=== PATIENT | female | born 1960 | race Caucasian/White ===

== ENCOUNTER 2020-04-09 08:59 | Outpatient (REF) | payer OTHER, SELFPAY ==
--- NOTE | ~2020-04-09 | MM_ITS ---
EXAMINATION: MM SCREENING DIGITAL BREAST TOMOSYNTHESIS, BILATERAL CLINICAL INFORMATION: Screening. Asymptomatic. The lifetime risk of breast cancer based on the Tyrer-Cuzick Model is 7%. COMPARISON: Mammography: 04/05/2019, 02/14/2018, 01/20/2017 TECHNIQUE: Digital breast tomosynthesis is performed in both the craniocaudal and mediolateral oblique views along with computer-aided detection (CAD). Synthesized 2D images are generated from the tomosynthesis. FINDINGS: There are scattered areas of fibroglandular density (ACR BI-RADS breast composition Category b). There are no significant masses, abnormal calcifications, or other abnormalities. Parenchymal pattern is similar to prior exams. Again, there is biopsy clip marker posterior 6:30 o'clock right breast. MM/MM tomosynthesis screening BI IMPRESSION: No mammographic evidence of malignancy. ASSESSMENT: BI-RADS 1: Negative RECOMMENDATION: Routine annual mammography screening. This patient's information was entered into a reminder system with a target due date for their next mammogram.
== END 2020-04-09 09:00 | disposition home or self-care (01) ==
LOC: HO.MAMMO 08:59
PROVIDERS: PCP Nurse Practitioner Family; Visit Provider Nurse Practitioner Family
DX: Z12.31 Encounter for screening mammogram for malignant neoplasm of breast (principal)
CPT/HCPCS: 77063; 77067

== ENCOUNTER 2020-06-17 17:17 | Outpatient (REF) | payer OTHER, SELFPAY ==
[2020-06-17 18:08] LABS: MANUAL DIFF FLAG NO
[2020-06-17 18:27] LABS: Basophils Absolute Auto 0.1 X10*3/uL (0.0-0.2); Basophils Percent Auto 0.9 % (0-2); Eosinophils Absolute Auto 0.1 X10*3/uL (0.0-0.4); Eosinophils Percent Auto 1.7 % (0-4); Hematocrit 39.5 % (37-47); Hemoglobin 13.3 g/dl (12.0-16.0); Imm Gran Abs Auto 0.02 X10*3/uL (0.00-0.03); Imm Gran Pct Auto 0.3 % (0.0-0.4); Lymphocytes Absolute Auto 2.2 X10*3/uL (1.2-4.9); Lymphocytes Percent Auto 28.8 % (20-40); Mean Corpuscular HGB Conc 33.7 g/dl (31.0-35.0); Mean Corpuscular Hemoglobin 31.4 pg (27.0-33.0); Mean Corpuscular Volume 93.4 fL (80-98); Mean Platelet Volume 9.8 fL (9.4-12.3); Monocytes Absolute Auto 0.6 X10*3/uL (0.1-1.2); Monocytes Percent Auto 7.8 % (2-11); Neutrophils Absolute Auto 4.5 X10*3/uL (2.0-8.3); Neutrophils Percent Auto 60.5 % (45-73); Platelet Count 239 X10*3/uL (160-400); Red Blood Count 4.23 X10*6/uL (4.20-5.50); Red Cell Distribution Width 12.1 % (11.0-16.0); White Blood Count 7.5 X10*3/uL (4.8-10.8)
[2020-06-17 18:37] LABS: Alanine Aminotransferase 22 U/L (0-31); Alkaline Phosphatase 93 U/L (39-117); Amylase 38 U/L (28-100); Aspartate Amino Transferase 29 U/L (5-31); Bilirubin Direct < 0.2 mg/dL (0.0-0.5); Bilirubin Total 0.4 mg/dL (0.0-1.0); Lipase 38 U/L (8-78); Total Protein 7.1 g/dL (6.5-8.0)
== END 2020-06-17 17:18 | disposition home or self-care (01) ==
LOC: HO.LAB 17:17
PROVIDERS: PCP Nurse Practitioner Family; Visit Provider Internal Medicine
DX: R10.13 Epigastric pain (principal)
CPT/HCPCS: 36415; 80076; 82150; 83690; 85025

== ENCOUNTER 2020-06-27 08:58 | Outpatient (REF) | payer OTHER, SELFPAY ==
--- NOTE | ~2020-06-27 | US_ITS ---
EXAMINATION: US ABDOMEN COMPLETE CLINICAL INFORMATION: Epigastric pain. COMPARISON: None TECHNIQUE: Real-time imaging of the abdominal viscera. FINDINGS: PANCREAS: Normal. ABDOMINAL AORTA: The proximal, mid, and distal segments are normal in caliber. INFERIOR VENA CAVA: Visualized portions are normal. LIVER: Liver echotexture is increased probably representing fatty infiltration. There is a hypoechoic area adjacent to the gallbladder, characteristic location of focal fatty sparing. No other focal liver lesion is seen. The liver is normal in size and shape. There is no intrahepatic biliary duct dilatation seen. GALLBLADDER: Normal. The gallbladder is physiologically distended without evidence of stones, sludge, polyps, wall thickening or pericholecystic fluid. COMMON BILE DUCT: Normal in caliber measuring 0.4 cm in diameter. RIGHT KIDNEY: Normal. No hydronephrosis. No renal calculi or focal parenchymal lesions. The kidney measures 8.9 cm in maximum dimension. LEFT KIDNEY: Normal. No hydronephrosis. No renal calculi or focal parenchymal lesions. The kidney measures 8.9 cm in maximum dimension. SPLEEN: Normal. The spleen measures 9.7 cm in maximum dimension. FREE FLUID: None. US/US abdomen complete IMPRESSION: Echogenic liver probably representing fatty infiltration. Otherwise unremarkable exam.
== END 2020-06-27 08:59 | disposition home or self-care (01) ==
LOC: HO.US 08:58
PROVIDERS: PCP Nurse Practitioner Family; Visit Provider Internal Medicine
DX: R10.13 Epigastric pain (principal)
CPT/HCPCS: 76700

== ENCOUNTER 2024-05-05 08:21 | Day surgery (SDC) | payer MEDICARE, OTHER, SELFPAY ==
[2024-05-03 13:30] VITALS: BMI 32.0
--- NOTE | 2024-05-04 12:05 | HO.ANESPROP2 ---
Documented by User: Justyna Corrales NP 05/04/24 12:07 HPI - Anesthesia Eval Consult details Narrative: 64yo F for Colonoscopy Anesthesia Pre-Procedure Meds Is the patient on any of the following meds?: GLP1/DPP4 PMFSH Past Medical History Medical History Urinary incontinence Chronic UTI (urinary tract infection) OAB (overactive bladder) GERD (gastroesophageal reflux disease) Sleep apnea Hyperlipidemia Anxiety Diabetes Surgical History Surgical History Hx of shoulder surgery Hx of umbilical hernia repair History of bladder suspension procedure Hx of hysterectomy H/O colonoscopy History of esophagogastroduodenoscopy (EGD) Social History Social History Are you a primary critical care registered nurse to a significant other at home: No Do you presently have visiting nurse or other home services: No Patient Tobacco Use Status: Former Tobacco user Have you been hit, kicked, punched, or otherwise hurt by someone within the past year? If so, by whom?: No Are you DNR?: No Advance Directives: No Advance Directives Information Provided: Yes Recently lost weight without trying: No Nutrition Risks: No Nutritional Risk Meds Allergies Allergy/AdvReac Type Severity Reaction Status Date / Time No Known Allergies Allergy Verified 05/05/24 08:44 [No Known Allergies*] Home Medications ?Medication ?Instructions ?Recorded ?Confirmed ?Last Taken ?Type citalopram 20 mg tablet 20 mg PO DAILY 05/03/24 05/03/24 Unknown History dulaglutide 3 mg/0.5 mL 3 mg subcut QWEEK 05/03/24 05/03/24 04/17/24 History subcutaneous pen injector (Trulicity) estradiol 0.01% (0.1 mg/gram) 1 appl vaginal 2XW 05/03/24 05/03/24 Unknown History vaginal cream ibuprofen 800 mg tablet 800 mg PO TID PRN pain 05/03/24 05/03/24 Unknown History lisinopril 2.5 mg tablet 2.5 mg PO DAILY 05/03/24 05/03/24 Unknown History lovastatin 40 mg tablet 80 mg PO DAILY 05/03/24 05/03/24 Unknown History methenamine hippurate 1 gram tablet 1 g PO BID 05/03/24 05/03/24 Unknown History omeprazole 40 mg capsule,delayed 40 mg PO DAILY 05/03/24 05/03/24 05/05/24 History release trazodone 50 mg tablet 50 mg PO BEDTIME 05/03/24 05/03/24 Unknown History vibegron 75 mg tablet (Gemtesa) 75 mg PO DAILY 05/03/24 05/03/24 Unknown History Exam Height,Weight and Vital Signs: Height 5 ft 2 in Weight 79.379 kg Assessment and Plan Assessment Anesthesia Assessment: Chart Reviewed Documented by User: Mounika Middleton MD 05/05/24 09:20 PMFSH Past Medical History Medical History Urinary incontinence Chronic UTI (urinary tract infection) OAB (overactive bladder) GERD (gastroesophageal reflux disease) Sleep apnea Hyperlipidemia Anxiety Diabetes Surgical History Surgical History Hx of shoulder surgery Hx of umbilical hernia repair History of bladder suspension procedure Hx of hysterectomy H/O colonoscopy History of esophagogastroduodenoscopy (EGD) History of Problems with Anesthesia: No Social History Social History Are you a primary critical care registered nurse to a significant other at home: No Do you presently have visiting nurse or other home services: No Patient Tobacco Use Status: Former Tobacco user Have you been hit, kicked, punched, or otherwise hurt by someone within the past year? If so, by whom?: No Are you DNR?: No Advance Directives: No Advance Directives Information Provided: Yes Recently lost weight without trying: No Nutrition Risks: No Nutritional Risk Meds Allergies Allergy/AdvReac Type Severity Reaction Status Date / Time No Known Allergies Allergy Verified 05/05/24 08:44 [No Known Allergies*] Home Medications ?Medication ?Instructions ?Recorded ?Confirmed ?Last Taken ?Type citalopram 20 mg tablet 20 mg PO DAILY 05/03/24 05/03/24 Unknown History dulaglutide 3 mg/0.5 mL 3 mg subcut QWEEK 05/03/24 05/03/24 04/17/24 History subcutaneous pen injector (Trulicity) estradiol 0.01% (0.1 mg/gram) 1 appl vaginal 2XW 05/03/24 05/03/24 Unknown History vaginal cream ibuprofen 800 mg tablet 800 mg PO TID PRN pain 05/03/24 05/03/24 Unknown History lisinopril 2.5 mg tablet 2.5 mg PO DAILY 05/03/24 05/03/24 Unknown History lovastatin 40 mg tablet 80 mg PO DAILY 05/03/24 05/03/24 Unknown History methenamine hippurate 1 gram tablet 1 g PO BID 05/03/24 05/03/24 Unknown History omeprazole 40 mg capsule,delayed 40 mg PO DAILY 05/03/24 05/03/24 05/05/24 History release trazodone 50 mg tablet 50 mg PO BEDTIME 05/03/24 05/03/24 Unknown History vibegron 75 mg tablet (Gemtesa) 75 mg PO DAILY 05/03/24 05/03/24 Unknown History Exam Airway Mallampati Class: II TM Dist: >3cm Neck ROM: Full Loose/Missing/Broken Teeth: No Heart: RRR Lungs: CTA Assessment and Plan Assessment Anesthesia Assessment: Anesthesia Plan Discussed Final Anesthetic Review History of Problems with Anesthesia: No NPO: Yes ASA Class: III Final Preanesthetic Review: Meds/Allgs Chart Reviewed, Consent Obtained/Reviewed and Anes Risks/Benef Reviewed Patient Risk: Intermediate Procedure Risk: Low Anesthetic Plan Anesthetic Plan: MAC: Disposition: Standard PACU
[2024-05-05 08:43] VITALS: BMI 31.6
[2024-05-05] MEDS: Lactated Ringers 1,000 ML 100 ML IVCONT (08:54)
[2024-05-05 08:55] VITALS: BP 128/85; PULSE 74; RESP 18; TEMP 36.6; O2SAT 95
[2024-05-05 09:11] LABS: Glucose, Whole Blood 145 mg/dL (60-115)
[2024-05-05 10:06] VITALS: BP 115/64; PULSE 65; RESP 18; TEMP 36.2; O2SAT 100
--- NOTE | 2024-05-05 10:11 | PM.OP ---
Brief Operative Note Date of Service: 05/05/24 Pre-op diagnosis: Screening Post-op diagnosis: other (Colon polyp) Procedure: Colonoscopy to the cecum with bx/removal of polyp Surgeon: Francisco Javier Sevilla MD Anesthesia: MAC Was an Supervisor Filter Assembly used for this Procedure?: No Estimated blood loss (mL): 2.0 Pathology: other (A. Polyp at 20cm) Condition: stable Disposition: PACU
[2024-05-05 10:21] VITALS: BP 124/54; PULSE 63; RESP 18; TEMP 36.7; O2SAT 97
--- NOTE | 2024-05-05 10:34 | OP_ITS ---
DATE OF SERVICE: 05/05/2024 SURGEON: Francisco Javier Sevilla MD INDICATIONS: Patient presents for evaluation of colorectal cancer screening and personal history of tubular adenoma of the colon. Full consent was obtained from her for this, including risks of bleeding and perforation. PREOPERATIVE DIAGNOSIS: POSTOPERATIVE DIAGNOSIS: PROCEDURE PERFORMED: Colonoscopy to cecum with biopsy and removal of polyp. ESTIMATED BLOOD LOSS: COMPLICATIONS: ANESTHESIA: Preop medication used, monitored anesthesia care. ASSISTANTS: SPECIMENS: PREOPERATIVE DIAGNOSES: Colorectal cancer screening and personal history of tubular adenoma of the colon. POSTOPERATIVE DIAGNOSES: Colorectal cancer screening, personal history of tubular adenoma of the colon, colon polyp, diverticulosis, and internal hemorrhoids. DESCRIPTION OF PROCEDURE: The patient was placed in left lateral decubitus position. The digital rectal exam revealed no abnormalities. The Olympus video pediatric colonoscope was entered into the rectum and advanced to the cecum with assistance of abdominal wall pressure. Once in the cecum, I did identify normal-appearing cecal pouch with appendiceal orifice, a normal-appearing ileocecal valve. The entire cecum and ileocecal valve appeared normal. There was transillumination of light deep in the right lower quadrant. The scope was slowly withdrawn assessing all mucosal surfaces carefully. Preparation was excellent. At 20 cm was a flat, but raised approximately 5 or 6 mm polyp, which was removed completely in piecemeal fashion with the cold biopsy forceps. I did not visualize any other polyps, colitis, nor angiodysplasias. There was a mild amount of sigmoid diverticulosis. In the rectum, scope was retroflexed visualizing internal hemorrhoids, but no other pathology. The rectal mucosa appeared normal. Scope was straightened and withdrawn from the patient. She tolerated the procedure well, was returned to the recovery area in stable condition. IMPRESSION: 1. Colon polyp. 2. Diverticulosis. 3. Internal hemorrhoids. PLAN: The results of the pathology will be checked. I would recommend a repeat colonoscopy in 5 years. She will otherwise see me on a p.r.n. basis. MD YUNIER Mckeon/MARI / [id number]
== END 2024-05-05 11:09 | disposition home or self-care (01) ==
PROVIDERS: PCP Nurse Practitioner Family; Visit Provider Internal Medicine
PROC: 0DJD8ZZ Inspection of Lower Intestinal Tract, Via Natural or Artificial Opening Endoscopic (ICD-10-PCS; CPT 45378; principal; 2024-05-05 09:50)
DX: Z12.11 Encounter for screening for malignant neoplasm of colon (principal); D12.5 Benign neoplasm of sigmoid colon; K57.30 Diverticulosis of large intestine without perforation or abscess without bleeding; K64.8 Other hemorrhoids; Z86.0101 Personal history of adenomatous and serrated colon polyps; E11.9 Type 2 diabetes mellitus without complications; E78.5 Hyperlipidemia, unspecified; G47.33 Obstructive sleep apnea (adult) (pediatric); Z99.89 Dependence on other enabling machines and devices; Z87.891 Personal history of nicotine dependence; Z79.85 Long-term (current) use of injectable non-insulin antidiabetic drugs; Z79.02 Long term (current) use of antithrombotics/antiplatelets; Z79.899 Other long term (current) drug therapy
CPT/HCPCS: 45380; 82947; 88305; J2003; J2704

== ENCOUNTER 2025-01-02 08:54 | Outpatient (RCR) | payer MEDICARE, OTHER, SELFPAY ==
--- NOTE | 2024-12-20 14:00 | MHC.OT.EP ---
[facility] Office [address] [facility] [phone] F: [phone] F: [phone] Occupational Therapy Plan of Care Patient Name: Jennifer Corona Date of Evaluation: 12/20/24 Diagnosis: R RF PIP J sprain Pain Location: constant pain ; wakes her up at night Pain Score: 3 Pain Scale Used: Numeric (0 - 10) Aggravating Factors: Alleviating Factors: NONE REPORTED Assessment: Pt is a 64 yr. old R hand dominant female who injured her R RF hand while carrying a canoe 2+ mos. ago. 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 X-rays were taken which were negative for fractures. Pt presents today w/ decreased ROM, edema of her PIP J, and a weaker hand concierge receptionist. Pt would benefit from skilled OT therapy to address these deficits and increase the functional use of pt's R hand. Frequency and Duration: The patient will be seen 2xs a week for 4 weeks Short Term Goals: SEE BELOW Assisted Goals: Pt will adhere to her HEP Pt will make a composite fist pt will report 1/10 pain w/ active use of her R hand Treatment Plan: Therapeutic Exercise Therapeutic Activity Home Exercise Program Splinting Patient Education Edema Control Ultrasound NMES Paraffin Fluidotherapy MHP Joint Mobilization Soft Tissue Mobilization Kinesiotaping Electronically Signed By: Karol De La O OTR/L Please Sign and return to therapist. Thank you once again for your referral.
--- NOTE | 2025-01-02 09:59 | MHC.OT.DC ---
[facility] Office [address] [facility] [phone] F: [phone] F: [phone] Occupational Therapy Discharge Note Patient Name: Jennifer Corona Provider: Tanisha Clements Diagnosis: R RF PIP J sprain Date of Surgery: Date of Evaluation: 12/20/24 Date of Discharge: Treatments to Date: 3 Cancellations to Date: No Shows to Date: Discharge Status: Achieved Goals Improved Function Discharge Summary: Pt has met her therapy goals ; ok to d/charge pt is in agreement. She was given putty for HEP to continue w/ framer strengthening Pt. was a pleasure to work with! Thank you for including me in her plan of care ! Electronically Signed By: Karol De La O OTR/L Reviewed/agree with student documentation: Therapist: Please Sign and return to therapist, thank you for your referral.
== END 2025-01-02 09:59 | disposition home or self-care (01) ==
LOC: HO.OT 08:54
PROVIDERS: PCP Nurse Practitioner Family; Visit Provider Physician Assistant
DX: M79.641 Pain in right hand (principal)
CPT/HCPCS: 97110; 97140; 97165; 97535